=== PATIENT | male | born 1945 | race Caucasian/White ===

== ENCOUNTER 2016-08-02 19:11 | Inpatient (IN) | payer MEDICARE, MEDICAID ==
[~2016-08-02] VITALS: Ht 160 cm; Wt 63.5 kg
--- NOTE | 2016-08-02 20:20 | NUR ---
DIRECT ADMIT FROM [facility] BY [facility] TO ROOM 118 A. ABLE TO AMBULATE TO BED WITH ASSIST OF CANE AND STANDBY ASSIST. HERE TO ARU, TO IMPROVE STRENGTH AND MOBILITY. NO C/O PAIN AT PRESENT.NO RESPIRATORY DISTRESS AT PRESENT. DR OVIEDO PAGED AND NOTIFIED OF ADMISSION. MED ORDERS RECEIVED.DR. ROBLES STATED HE WANTED HOSPITALIST TO WORK ON THE DIABETIC MEDS.DEFERRED TO DR JACKSON. HE STATED HE WILL DO INSULIN ORDERS IN [facility]. NOTIFIED OF ACCUCHECK OF 150 TONIGHT WITHOUT VISUAL SYMPTOMS.ORIENTED TO ROOM, TV, AND CALL LIGHT. PATIENT VERBALIZES UNDERSTANDING.CALL LIGHT WITHIN REACH AAT. INSTRUCTED TO CALL NURSE WHEN HE WANTS TO GET OOB TO TOILET. PT VERBALIZES GOOD UNDERSTANDING.
[2016-08-02] MEDS: MELATONIN 3 MG TABLET PO SCH (21:00)
[2016-08-02] MEDS ORDERED: HYDROCODONE/APAP 5-325MG TABLET PO PRN ×2 (21:00→23:00)
[2016-08-02] MEDS: ENOXAPARIN SODIUM 40 MG/0.4 ML DISP.SYRIN SQ SCH (22:01)
[2016-08-02] MEDS ORDERED: ENOXAPARIN SODIUM 40 MG/0.4 ML DISP.SYRIN SQ ONE (22:06)
[2016-08-02] MEDS: BLOOD SUGAR DIAGNOSTIC 1 EACH STRIP VI SCH (22:29)
[2016-08-02] MEDS ORDERED: MIRALAX 17 GM POWD.PACK PO PRN (22:30)
[2016-08-02] MEDS ORDERED: ACETAMINOPHEN 325 MG TABLET PO PRN ×2 (22:30→23:00)
[2016-08-02] MEDS ORDERED: ALBUTEROL SULFATE 2.5 MG/ 0.5 ML NEBU NEB PRN (22:30)
[2016-08-02] MEDS ORDERED: IPRATROPIUM BROMIDE 0.5 MG/2.5 ML NEBU NEB PRN (22:30)
[2016-08-02] MEDS ORDERED: Z GUARD REMEDY PASTE 57 GM TUBE TOP PRN (23:00)
--- NOTE | 2016-08-02 23:10 | NUR ---
DR JACKSON HOSPITALIST CALLED BACK TO ME AND I NOTIFIED HIM OF ACCUCHECK TONIGHT OF 150, AND THAT PATIENT IS ON GLUCOPHAGE BID. STATED HE WILL MANAGE INSULIN ORDERS IN THE MORNING.
[2016-08-02 23:45] VITALS: BP 146/86
[2016-08-03] MEDS ORDERED: PANTOPRAZOLE SODIUM 40 MG TABLET.DR PO ONE (05:37)
--- NOTE | 2016-08-03 06:00 | NUR ---
SLEPT WELL TONIGHT. NO C/O PAIN OR RESPIRATORY DISTRESS ON ROOM AIR.AMBULATED TO TOILET WITH STEADY GAIT WITH AND WITHOUT CANE AT TIMES. INSTRUCTED TO CALL RN PRIOR TO GOING TO TOILET. PATIENT VERBALIZES UNDERSTANDING. CALL LIGHT WITH REACH
[2016-08-03] MEDS: PANTOPRAZOLE SODIUM 40 MG TABLET.DR PO SCH (06:15)
--- NOTE | 2016-08-03 06:18 | NUR ---
protonix given x1. duplicate order of med, not given
[2016-08-03] MEDS: BLOOD SUGAR DIAGNOSTIC 1 EACH STRIP VI SCH ×4 (06:56→21:05)
[2016-08-03] MEDS ORDERED: PANTOPRAZOLE SODIUM 40 MG TABLET.DR PO SCH (07:00)
[2016-08-03 08:00] VITALS: BP 118/74
[2016-08-03] MEDS: MULTIVIT, IRON, MIN NO. 8, FA TABLET PO SCH (09:00)
[2016-08-03] MEDS: METFORMIN HCL 500 MG TABLET PO SCH ×2 (10:33→18:04)
[2016-08-03] MEDS: LACTOBACILLUS RHAMNOSUS GG 1 EACH CAPSULE PO SCH (10:34)
[2016-08-03] MEDS: GABAPENTIN 300 MG CAPSULE PO SCH ×3 (10:34→17:53)
[2016-08-03] MEDS ORDERED: ACET-2154 PO (13:12)
[2016-08-03] MEDS ORDERED: MULT-1119 PO (13:17)
[2016-08-03] MEDS ORDERED: MELA3TAB PO (13:21)
[2016-08-03] MEDS ORDERED: MELA1TAB10 PO (13:21)
[2016-08-03] MEDS ORDERED: ESOM20CA32 PO (13:28)
[2016-08-03] MEDS ORDERED: BLOO-1152 MC (13:33)
[2016-08-03] MEDS ORDERED: INSU100V11 SUBCUT (13:39)
[2016-08-03] MEDS ORDERED: METF500T PO (13:53)
[2016-08-03] MEDS ORDERED: LACT1CAP89 PO (13:59)
[2016-08-03] MEDS ORDERED: HYDR-3326 PO (14:03)
[2016-08-03] MEDS ORDERED: POLY250017 MC (14:07)
--- NOTE | 2016-08-03 15:34 | NUR ---
Bank Examiner: SW met with patient at bedside to assess needs and provide support. Pt was admitted due to Guillian Hamilton Syndrome, and reported this to be his first day of admission. Pt is pleasant and humorous throughout interview. 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 Pt reported that since then he has felt "sad" and is fearful of falling. Per pt, within the past year he has not felt confident in walking. During interview pt did appear to feel hopeless about his loss in ambulation due to his medical condition. Pt stated "I feel like anything I come across could easily bring me down, and make me fall." Pt also stated "When I stand up I feel stiffness in my legs" and "I'm scared to fall on anything." Pt acknowledged that it has been difficult for him to stay "positive" and feels that he is "unable to do anything" due to his inability to walk at times. 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 Per pt, he now feels as if he can't do anything due to his medical conditions. Per pt, he has a strong support system at home with his and children. Although pt has had a difficult time coping with medical condition, he did report to feel motivated in completing rehab. Per pt, he is "happy" to receive physical therapy and will cooperate with rehabilitation team. SW provided supportive counseling and emotional support to deal with patient's depressive symptoms related to his decline in functioning. SW will continue address issues of loss related to fear of falling. SW will continue to provide support in order for pt to cope with medical conditions. SW will provide pt with outpatient referrals related to diabetic support groups, as well as mental health referrals in order to cope with Guillian Hamilton Syndrome.
[2016-08-03 20:28] VITALS: BP 133/83
[2016-08-03] MEDS: ENOXAPARIN SODIUM 40 MG/0.4 ML DISP.SYRIN SQ SCH (21:00)
[2016-08-03] MEDS: MELATONIN 3 MG TABLET PO SCH (22:29)
[2016-08-04] MEDS: PANTOPRAZOLE SODIUM 40 MG TABLET.DR PO SCH (06:43)
[2016-08-04 08:00] VITALS: BP 131/81
[2016-08-04] MEDS: BLOOD SUGAR DIAGNOSTIC 1 EACH STRIP VI SCH ×4 (08:07→21:00)
[2016-08-04] MEDS: LACTOBACILLUS RHAMNOSUS GG 1 EACH CAPSULE PO SCH (08:17)
[2016-08-04] MEDS: MULTIVIT, IRON, MIN NO. 8, FA TABLET PO SCH (08:17)
[2016-08-04] MEDS: METFORMIN HCL 500 MG TABLET PO SCH ×2 (08:17→17:00)
[2016-08-04] MEDS: GABAPENTIN 300 MG CAPSULE PO SCH ×3 (08:17→16:48)
[2016-08-04 08:21] LABS: BASOPHILS % (AUTO) 0.5 % (0.0-2.0); EOSINOPHILS # (AUTO) 0.4 K/uL (0.0-0.7); EOSINOPHILS % (AUTO) 7.2 % (0.0-7.0); HEMATOCRIT 41.6 % (40-50); HEMOGLOBIN 14.8 G/DL (14.0-18.0); LYMPHOCYTES # (AUTO) 2.2 K/UL (0.8-4.8); LYMPHOCYTES % (AUTO) 36.2 % (20.5-51.5); MEAN CORPUSCULAR HEMOGLOBIN 34.3 UUG (27.0-31.0); MEAN CORPUSCULAR HGB CONC 36 g/dL (32.0-37.0); MEAN CORPUSCULAR VOLUME 96.4 FL (82.0-92.0); MONOCYTES # (AUTO) 0.6 K/UL (0.1-1.30); MONOCYTES % (AUTO) 9.6 % (0.0-11.0); NEUTROPHILS # (AUTO) 2.9 K/UL (1.8-8.9); NEUTROPHILS % (AUTO) 46.5 % (38.5-71.5); PLATELET COUNT (AUTO) 221 K/UL (150-450); RED BLOOD CELL COUNT(AUTO) 4.32 MIL/UL (4.7-6.1); WHITE BLOOD COUNT (AUTO) 6.1 K/UL (4.0-11.2)
[2016-08-04 08:38] LABS: CARBON DIOXIDE 27 mmol/L (21-32); CHLORIDE 107 mmol/L (98-107); CHOLESTEROL 114 mg/dL (<200); CREATININE 0.5 mg/dL (0.6-1.3); GLUCOSE 130 mg/dL (74-106); HDL CHOLESTEROL 23 mg/dL (40-60); MAGNESIUM 1.5 mg/dL (1.8-2.4); TRIGLYCERIDES 279 MG/DL (30-150); UREA NITROGEN, BLOOD 16 mg/dL (7-18)
[2016-08-04 09:20] LABS: THYROID STIMULATING HORMONE 2.809 mIU/mL (0.358-3.740)
[2016-08-04] MEDS ORDERED: MAGNESIUM OXIDE 400 MG TABLET PO ONE (12:30)
[2016-08-04 15:59] VITALS: BP 131/81
[2016-08-04 16:01] VITALS: BP 126/84
--- NOTE | 2016-08-04 16:30 | NUR ---
Spoke with NETO Anderson regarding accucheck order without coverage of insulin. PATROL DEPUTY SHERIFF stated ok to do accucheck without sugar. Oval Or Circular Glass Cutter stated he will talk to GI regarding the possible removal of Gtube
--- NOTE | 2016-08-04 19:45 | NUR ---
Patient received sitting on bed, AOx4. Pt is pleasant upon approach. Denies any pain or any physical discomfort at this time. No acute distress noted. Bed in low and locked position, call light within reach.
[2016-08-04 20:58] VITALS: BP 136/81
[2016-08-04] MEDS: ENOXAPARIN SODIUM 40 MG/0.4 ML DISP.SYRIN SQ SCH (21:00)
[2016-08-04] MEDS: MELATONIN 3 MG TABLET PO SCH (21:48)
--- NOTE | 2016-08-04 22:00 | NUR ---
Patient compliant with po medications. Refused lovenox and accu check at bedtime despite education. No s/s hypo/hyperglycemia noted. Will continue to monitor for safety.
[2016-08-05] MEDS: PANTOPRAZOLE SODIUM 40 MG TABLET.DR PO SCH (06:45)
[2016-08-05] MEDS: BLOOD SUGAR DIAGNOSTIC 1 EACH STRIP VI SCH (06:46)
[2016-08-05 08:35] VITALS: BP 139/83
[2016-08-05] MEDS: METFORMIN HCL 500 MG TABLET PO SCH ×2 (09:02→17:07)
[2016-08-05] MEDS: GABAPENTIN 300 MG CAPSULE PO SCH ×3 (09:02→17:07)
[2016-08-05] MEDS: LACTOBACILLUS RHAMNOSUS GG 1 EACH CAPSULE PO SCH (09:02)
[2016-08-05] MEDS: MULTIVIT, IRON, MIN NO. 8, FA TABLET PO SCH (09:02)
[2016-08-05 18:11] VITALS: BP 124/78
--- NOTE | 2016-08-05 20:30 | NUR ---
CALLED DR PATEL TO CONFIRM EGD WITH PEG REMOVAL FOR CONSENT. PT ACKNOWLEDGED PROCEDURE AND SIGNED CONSENT. INFORMED PT NPO AFTER MIDNIGHT, PT ACKNOWLEDGED.
[2016-08-05 20:38] VITALS: BP 128/82
[2016-08-05] MEDS: ENOXAPARIN SODIUM 40 MG/0.4 ML DISP.SYRIN SQ SCH (20:53)
[2016-08-05] MEDS: MELATONIN 3 MG TABLET PO SCH (20:53)
[2016-08-06] MEDS: PANTOPRAZOLE SODIUM 40 MG TABLET.DR PO SCH (06:41)
--- NOTE | 2016-08-06 07:05 | NUR ---
PT RESTING IN BED. NO DISTRESS NOTED. NPO STATUS MAINTAINED SINCE MIDNIGHT. SAFETY MAINTAINED. CALL LIGHT WITHIN REACH.
[2016-08-06] MEDS: METFORMIN HCL 500 MG TABLET PO SCH ×2 (08:00→18:00)
[2016-08-06] MEDS: GABAPENTIN 300 MG CAPSULE PO SCH ×3 (09:00→17:00)
[2016-08-06] MEDS: MULTIVIT, IRON, MIN NO. 8, FA TABLET PO SCH (09:00)
[2016-08-06] MEDS: LACTOBACILLUS RHAMNOSUS GG 1 EACH CAPSULE PO SCH (09:00)
--- NOTE | 2016-08-06 09:45 | NUR ---
RECEIVED PATIENT AT THERAPY. TOLERATED THERAPY WELL. REMINDED PATIENT TO MAINTAIN NPO STATUS. ORAL CARE DONE. ENCOURAGED TO VOID. MADE SURE CONSENT WAS AVAILABLE FOR EGD AT 10:00, CONSENT SIGNED BY PATIENT.
[2016-08-06] MEDS ORDERED: IV LACTATED RINGERS SOLUTION 1,000 ML BAG MC ONE (10:48)
[2016-08-06] MEDS ORDERED: LIDOCAINE HCL 1% 20 ML VIAL MC ONE (10:48)
[2016-08-06] MEDS ORDERED: PROPOFOL 200 MG/20 ML BOTTLE IV ONE (10:48)
[2016-08-06] MEDS ORDERED: IV D5/ 0.9% NACL 1,000 ML IV SCH (11:30)
--- NOTE | 2016-08-06 12:10 | NUR ---
PATIENT BACK TO ROOM IN STABLE CONDITION,AWAKE, ALERT AND ORIENTED. NO COMPLAINTS OF PAIN OR DISCOMFORT. INSTRUCTED PATIENT TO MAINTAIN NPO STATUS UNTIL 22:00 TODAY. IV FLUID OF D5NS 75CC./HR. STARTED. IV SITE OVER LEFT WRIST. IV PATENT AND INFUSING WELL.
[2016-08-06 20:00] VITALS: BP 139/84
[2016-08-06] MEDS: ENOXAPARIN SODIUM 40 MG/0.4 ML DISP.SYRIN SQ SCH (21:00)
[2016-08-06] MEDS: MELATONIN 3 MG TABLET PO SCH (21:00)
--- NOTE | 2016-08-06 22:15 | NUR ---
Received patient resting in bed with no s/s of distress. Respirations even and unlabored. No pain at this time. NPO until 10PM. Call light within reach. Will continue to monitor.
[2016-08-07] MEDS: MELATONIN 3 MG TABLET PO SCH ×2 (00:25→22:16)
--- NOTE | 2016-08-07 00:26 | NUR ---
Patient refused Lovenox, stated he does not want to be on said medication anymore and that this request was already made known to staff previously.
[2016-08-07] MEDS: PANTOPRAZOLE SODIUM 40 MG TABLET.DR PO SCH (06:03)
--- NOTE | 2016-08-07 06:34 | NUR ---
Patient resting on bed, no distress noted. No complaints of pain during shift. Respirations even and unlabored. Dinner served per patient's request around 2300. Supervised during ambulation to the bathroom. IV line taken off per patient's request, verbalized discomfort. Stated it bothered him everytime something touches it. Due meds given. Needs attended. Kept comfortable. Frequent checks done. Endorsed accordingly.
[2016-08-07 08:00] VITALS: BP 125/65
--- NOTE | 2016-08-07 08:00 | NUR ---
RECEIVED PATIENT AWAKE IN BED. AWAKE, ALERT AND ORIENTED. NO COMPLAINTS OF DISCOMFORT. NO IV LINE PRESENT. COMPLETED IV INFUSION. CALL LIGHT WITHIN REACH. ENSURED SAFETY
[2016-08-07] MEDS: GABAPENTIN 300 MG CAPSULE PO SCH ×3 (08:22→17:20)
[2016-08-07] MEDS: LACTOBACILLUS RHAMNOSUS GG 1 EACH CAPSULE PO SCH (08:22)
[2016-08-07] MEDS: MULTIVIT, IRON, MIN NO. 8, FA TABLET PO SCH (08:22)
[2016-08-07] MEDS: METFORMIN HCL 500 MG TABLET PO SCH ×2 (08:23→17:20)
--- NOTE | 2016-08-07 15:31 | NUR ---
PATIENT FOUND ON [address] SITTING DOWN WITH MERRY/RN AND YENNIFER/ALLYSON. PATIENT TRIPPED AND FELL HITTING BILATERAL KNEES AND RIGHT ARM ON THE GROUND. NO VISIBLE BRUISE OR OPEN WOUNDS ON KNEES AND ELBOW. PATIENT IS ALERT, AWAKE AND ORIENTED. NO COMPLAINTS OF DISCOMFORT. NO S/S OF DISTRESS. VITAL SIGNS TAKEN, VITAL SIGNS WNL. INFORMED DR. ROBLES OF INCIDENT, NO NEW ORDERS AT THIS TIME. INFORMED PHYSICAL THERAPY OF INCIDENT. INFORMED MARY ELLEN, DIRECTOR OF RETAIL MARKETING AND CHARLIE, DIRECTOR. INFORMED PEGGY GARCIA, DAUGHTER OF INCIDENT. INCIDENT COMPLETED AND SUBMITTED
--- NOTE | 2016-08-07 19:16 | NUR ---
Pt in bed, a/o x4, call light within reach. no distress noted.
[2016-08-07] MEDS: ENOXAPARIN SODIUM 40 MG/0.4 ML DISP.SYRIN SQ SCH (21:00)
[2016-08-07 21:39] VITALS: BP 126/77
--- NOTE | 2016-08-07 23:35 | NUR ---
Received patient resting in bed with no s/s of distress. No complaints of pain at this time. In a pleasant disposition. Verbalized absence of pain, stated "feeling good" despite fall incident earlier in the day. Call light within reach. Will continue to monitor.
[2016-08-08] MEDS: PANTOPRAZOLE SODIUM 40 MG TABLET.DR PO SCH (06:27)
--- NOTE | 2016-08-08 06:57 | NUR ---
Patient went back to sleep after taking AM meds. Verbalized thankfulness for nurses' being caring. Pleasant disposition throughout shift. Frequent checks done. No s/s of distress. No complaints of pain. Due meds given. Needs attended. Call light kept within reach. Endorsed accordingly.
[2016-08-08 08:00] VITALS: BP 121/76
[2016-08-08] MEDS: METFORMIN HCL 500 MG TABLET PO SCH ×2 (09:19→17:24)
[2016-08-08] MEDS: MULTIVIT, IRON, MIN NO. 8, FA TABLET PO SCH (09:19)
[2016-08-08] MEDS: LACTOBACILLUS RHAMNOSUS GG 1 EACH CAPSULE PO SCH (09:19)
[2016-08-08] MEDS: GABAPENTIN 300 MG CAPSULE PO SCH ×3 (09:19→17:24)
--- NOTE | 2016-08-08 19:30 | NUR ---
RECEIVED PATIENT AWAKE, ALERT AND ORIENTED X4 WITHOUT C/O PAIN, NUMBNESS, TINGLING OR DIFFICULTY BREATHING.DR ROBLES HERE TO EVALUATE PATIENT WITH ORDERS RECEIVED. 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 OBLIGED REQUEST.LEFT MID ABDOMINAL QUADRANT SURGICAL DRESSING S/P G TUBE REMOVAL WAS CHANGED. CLEANED SITE WITH NORMAL SALINE, COVERED WITH STERILE DRESSING AND PAPER TAPE.THERE ARE NO SIGNS OF INFECTION AT SITE AT THIS TIME.NO DRAINAGE FROM SITE, NO REDNESS AT SITE. SITE IS NEARLY COMPLETELY CLOSED. PATIENT HAS NO C/O PAIN AT THE SITE. SAFETY AND COMFORT CONCERNS MAINTAINED. CALL LIGHT WITHIN REACH AAT.
[2016-08-08 22:19] VITALS: BP 135/79
[2016-08-08] MEDS: MELATONIN 3 MG TABLET PO SCH (22:31)
--- NOTE | 2016-08-09 06:00 | NUR ---
SLEPT WELL AFTER TAKING HIS MELATONIN LAST NIGHT.FREE FROM INJURY THIS SHIFT. NO C/O WEAKNESS WHILE WALKING TO THE BATHROOM WITH HIS CANE.NO C/O PAIN THIS MORNING. APPEARS COMFORTABLE IN NAD. CALL LIGHT WITHIN REACH AAT
[2016-08-09] MEDS: PANTOPRAZOLE SODIUM 40 MG TABLET.DR PO SCH (06:07)
[2016-08-09 08:12] LABS: BASOPHILS % (AUTO) 0.5 % (0.0-2.0); EOSINOPHILS # (AUTO) 0.5 K/uL (0.0-0.7); EOSINOPHILS % (AUTO) 6.5 % (0.0-7.0); LYMPHOCYTES # (AUTO) 2.7 K/UL (0.8-4.8); LYMPHOCYTES % (AUTO) 36.4 % (20.5-51.5); MEAN CORPUSCULAR HEMOGLOBIN 34.4 UUG (27.0-31.0); MEAN CORPUSCULAR HGB CONC 36 g/dL (32.0-37.0); MEAN CORPUSCULAR VOLUME 96.8 FL (82.0-92.0); MONOCYTES # (AUTO) 0.6 K/UL (0.1-1.30); MONOCYTES % (AUTO) 7.8 % (0.0-11.0); NEUTROPHILS # (AUTO) 3.6 K/UL (1.8-8.9); NEUTROPHILS % (AUTO) 48.8 % (38.5-71.5); PLATELET COUNT (AUTO) 237 K/UL (150-450); RED BLOOD CELL COUNT(AUTO) 4.64 MIL/UL (4.7-6.1); WHITE BLOOD COUNT (AUTO) 7.4 K/UL (4.0-11.2)
[2016-08-09 08:34] VITALS: BP 128/71
[2016-08-09] MEDS: MULTIVIT, IRON, MIN NO. 8, FA TABLET PO SCH (09:04)
[2016-08-09] MEDS: GABAPENTIN 300 MG CAPSULE PO SCH ×3 (09:04→17:37)
[2016-08-09] MEDS: LACTOBACILLUS RHAMNOSUS GG 1 EACH CAPSULE PO SCH (09:04)
[2016-08-09] MEDS: METFORMIN HCL 500 MG TABLET PO SCH ×2 (09:04→17:37)
[2016-08-09 09:39] LABS: ALANINE AMINOTRANSFERASE 62 U/L (16-63); ALKALINE PHOSPHATASE 51 U/L (50-136); ASPARTATE AMINOTRANSFERASE 37 U/L (15-37); BILIRUBIN,TOTAL 0.7 mg/dL (0.2-1.0); CARBON DIOXIDE 29 mmol/L (21-32); CHLORIDE 107 mmol/L (98-107); CREATININE 0.5 mg/dL (0.6-1.3); GLUCOSE 131 mg/dL (74-106); MAGNESIUM 1.7 mg/dL (1.8-2.4); PHOSPHOROUS 3.3 mg/dL (2.5-4.9); POTASSIUM 4.6 mmol/L (3.5-5.1); TOTAL PROTEIN, SERUM 7.7 g/dL (6.4-8.2); UREA NITROGEN, BLOOD 17 mg/dL (7-18)
[2016-08-09] MEDS ORDERED: MAGNESIUM OXIDE 400 MG TABLET PO ONE (10:30)
--- NOTE | 2016-08-09 14:39 | NUR ---
pt diet switched to regular diet. Addendum: 08/09/16 at 1440 by STEPHANI LAM RN as prescribed verbally by Alda
--- NOTE | 2016-08-09 17:02 | NUR ---
IDT MEETING 08/09/16
[2016-08-09] MEDS: MELATONIN 3 MG TABLET PO SCH (21:21)
[2016-08-09 22:17] VITALS: BP 139/85
--- NOTE | 2016-08-10 06:28 | NUR ---
Patient alert and oriented and verbally able to let needs known. Slept well throughout the night. Had no complains of pain or discomfort, no signs of respiratory distress. Patient has call light within reach, all needs attended to.
--- NOTE | 2016-08-10 08:00 | NUR ---
RECEIVED PATIENT AWAKE SITTING IN BED. NO S/S OF DISTRESS NO COMPLAINTS OF PAIN OR DISCOMFORT. CALL LIGHT WITHIN REACH. WILL CONTINUE TO MONITOR,
[2016-08-10] MEDS: PANTOPRAZOLE SODIUM 40 MG TABLET.DR PO SCH (08:01)
[2016-08-10] MEDS: METFORMIN HCL 500 MG TABLET PO SCH ×2 (08:01→17:55)
[2016-08-10] MEDS: MULTIVIT, IRON, MIN NO. 8, FA TABLET PO SCH (08:03)
[2016-08-10] MEDS: LACTOBACILLUS RHAMNOSUS GG 1 EACH CAPSULE PO SCH (08:03)
[2016-08-10] MEDS: GABAPENTIN 300 MG CAPSULE PO SCH ×3 (08:03→17:55)
[2016-08-10 08:27] VITALS: BP 120/72
--- NOTE | 2016-08-10 14:00 | NUR ---
TOLERATED THERAPY WELL. ATTENDED TO NEEDS PROMPTLY. PATIENT SITTING AT BED WITH LAP TOP.
--- NOTE | 2016-08-10 18:13 | NUR ---
PEG REMOVAL INCISION DRESSING CHANGED. DRY WOUND, HEALING WELL.
[2016-08-10] MEDS: MELATONIN 3 MG TABLET PO SCH (20:42)
[2016-08-10 21:46] VITALS: BP 135/83
[2016-08-11] MEDS: PANTOPRAZOLE SODIUM 40 MG TABLET.DR PO SCH (06:23)
--- NOTE | 2016-08-11 06:25 | NUR ---
Patient alert and oriented and verbally able to let needs known. Slept well throughout the night. Had no complains of pain or discomfort. No signs of respiratory distress, patient does have call light within reach, all needs attended to.
[2016-08-11] MEDS: MULTIVIT, IRON, MIN NO. 8, FA TABLET PO SCH (09:13)
[2016-08-11] MEDS: METFORMIN HCL 500 MG TABLET PO SCH ×2 (09:13→17:37)
[2016-08-11] MEDS: LACTOBACILLUS RHAMNOSUS GG 1 EACH CAPSULE PO SCH (09:13)
[2016-08-11] MEDS: GABAPENTIN 300 MG CAPSULE PO SCH ×3 (09:13→17:36)
--- NOTE | 2016-08-11 19:30 | NUR ---
Patient resting in bed, no s/s of distress. Verbalized having no pain. Pleasant disposition as usual. Call light within reach. Will continue to monitor.
[2016-08-11] MEDS: MELATONIN 3 MG TABLET PO SCH (20:28)
[2016-08-11 21:45] VITALS: BP 131/77
[2016-08-12] MEDS: PANTOPRAZOLE SODIUM 40 MG TABLET.DR PO SCH (06:26)
--- NOTE | 2016-08-12 07:10 | NUR ---
Patient went back to sleep after taking AM meds. Verbalized appreciation for care received. Pleasant disposition throughout shift. Slept well throughout the shift. Frequent checks done. No s/s of distress. Verbalized absence of pain. Due meds given. Needs attended. Call light kept within reach. Endorsed accordingly
[2016-08-12 08:00] VITALS: BP 144/86
--- NOTE | 2016-08-12 08:00 | NUR ---
Patient was received awake in bed. Alert and oriented x3. He is on room air. Denies any pain. Patient states " I am waiting on breakfast so I can eat before my physical therapy because yesterday the tray and PT arrived at the same time". Call light is within the patient's reach , will continue to monitor this patient and address any needs he may have today.
[2016-08-12] MEDS: LACTOBACILLUS RHAMNOSUS GG 1 EACH CAPSULE PO SCH (08:19)
[2016-08-12] MEDS: METFORMIN HCL 500 MG TABLET PO SCH ×2 (08:19→17:38)
[2016-08-12] MEDS: MULTIVIT, IRON, MIN NO. 8, FA TABLET PO SCH (08:19)
[2016-08-12] MEDS: GABAPENTIN 300 MG CAPSULE PO SCH ×3 (08:19→17:38)
--- NOTE | 2016-08-12 18:51 | NUR ---
Patient came to nursing station and stated" you want to know a problem I just started having about 30min ago". When asked what problem was patient showed me his hands and they were shaking . Patient stated he takes pills for his hand but do not know what the pills are. Calling to make doctor aware of patient problem at this time.
--- NOTE | 2016-08-12 19:06 | NUR ---
Blood Pressure is 127/72, Hr 83 and blood sugar is 172 will make doctor aware when he returns the phone call.
[2016-08-12] MEDS: MELATONIN 3 MG TABLET PO SCH (21:31)
--- NOTE | 2016-08-13 06:59 | NUR ---
Patient alert and oriented and verbally able to let needs known. Slept well throughout the night. Showed no signs of pain or discomfort, no signs of respiratory distress. Call light within reach, all needs attended to.
--- NOTE | 2016-08-13 07:50 | NUR ---
RECEIVED PATIENT AWAKE IN BED. ALERT AND ORIENTED. NO S/S OF DISTRESS. NO COMPLAINTS OF PAIN/ DISCOMFORT. CALL LIGHT WITHIN REACH. ENCOURAGED PATIENT TO VERBALIZE NEEDS AND CALL FOR ASSISTANCE.
[2016-08-13] MEDS: METFORMIN HCL 500 MG TABLET PO SCH ×2 (07:52→17:12)
[2016-08-13] MEDS: PANTOPRAZOLE SODIUM 40 MG TABLET.DR PO SCH (07:52)
[2016-08-13] MEDS: LACTOBACILLUS RHAMNOSUS GG 1 EACH CAPSULE PO SCH (08:01)
[2016-08-13] MEDS: MULTIVIT, IRON, MIN NO. 8, FA TABLET PO SCH (08:01)
[2016-08-13] MEDS: GABAPENTIN 300 MG CAPSULE PO SCH ×3 (08:01→17:12)
[2016-08-13 08:13] LABS: BASOPHILS % (AUTO) 0.4 % (0.0-2.0); EOSINOPHILS # (AUTO) 0.4 K/uL (0.0-0.7); EOSINOPHILS % (AUTO) 5.7 % (0.0-7.0); HEMOGLOBIN 14.9 G/DL (14.0-18.0); LYMPHOCYTES # (AUTO) 2.4 K/UL (0.8-4.8); MEAN CORPUSCULAR HEMOGLOBIN 33.5 UUG (27.0-31.0); MEAN CORPUSCULAR HGB CONC 35 g/dL (32.0-37.0); MEAN CORPUSCULAR VOLUME 96.6 FL (82.0-92.0); MONOCYTES # (AUTO) 0.6 K/UL (0.1-1.30); MONOCYTES % (AUTO) 9.4 % (0.0-11.0); NEUTROPHILS # (AUTO) 3.2 K/UL (1.8-8.9); NEUTROPHILS % (AUTO) 48.5 % (38.5-71.5); PLATELET COUNT (AUTO) 236 K/UL (150-450); RED BLOOD CELL COUNT(AUTO) 4.45 MIL/UL (4.7-6.1); WHITE BLOOD COUNT (AUTO) 6.6 K/UL (4.0-11.2)
[2016-08-13 08:25] LABS: ALANINE AMINOTRANSFERASE 63 U/L (16-63); ALKALINE PHOSPHATASE 48 U/L (50-136); ASPARTATE AMINOTRANSFERASE 30 U/L (15-37); BILIRUBIN,TOTAL 0.5 mg/dL (0.2-1.0); CARBON DIOXIDE 28 mmol/L (21-32); CHLORIDE 105 mmol/L (98-107); CREATININE 0.6 mg/dL (0.6-1.3); GLUCOSE 125 mg/dL (74-106); MAGNESIUM 1.6 mg/dL (1.8-2.4); POTASSIUM 3.9 mmol/L (3.5-5.1); UREA NITROGEN, BLOOD 17 mg/dL (7-18)
[2016-08-13 08:31] VITALS: BP 129/79
--- NOTE | 2016-08-13 16:00 | NUR ---
PATIENT HAD SHOWER, SHOWERED INDEPENDENTLY WITH SUPERVISION. TOLERATED THERAPY WELL. NO COMPLAINTS OF PAIN OR DISCOMFORT. CLEANED AND CHANGED DRESSING OVER PREVIOUS SURGICAL SITE.
[2016-08-13] MEDS: MELATONIN 3 MG TABLET PO SCH (20:54)
[2016-08-13] MEDS ORDERED: MAGNESIUM OXIDE 400 MG TABLET PO SCH (21:00)
[2016-08-13 21:59] VITALS: BP 111/75
[2016-08-14] MEDS: PANTOPRAZOLE SODIUM 40 MG TABLET.DR PO SCH (07:02)
--- NOTE | 2016-08-14 07:08 | NUR ---
Patient slept well throughout the night, showed no signs of pain or discomfort. Showed no signs of respiratory distress. Has call light within reach all needs attended to.
[2016-08-14 08:26] VITALS: BP 127/74
[2016-08-14] MEDS: LACTOBACILLUS RHAMNOSUS GG 1 EACH CAPSULE PO SCH (08:27)
[2016-08-14] MEDS: GABAPENTIN 300 MG CAPSULE PO SCH ×3 (08:27→17:32)
[2016-08-14] MEDS: MULTIVIT, IRON, MIN NO. 8, FA TABLET PO SCH (08:27)
[2016-08-14] MEDS: METFORMIN HCL 500 MG TABLET PO SCH ×2 (08:27→17:32)
--- NOTE | 2016-08-14 12:15 | NUR ---
Patient received from Figueroa RN, resting comfortably in bed. No signs of acute distress noted. Currently working on discharge process. Awaiting patient's daughter to call back regarding potato picker for patient, if possible. Case management made aware, [id number] facility made aware. No other verbalized needs at this time. Safety precautions maintained, call light within reach.
--- NOTE | 2016-08-14 16:47 | NUR ---
Discussed with patient discharge disposition and transport. Contacted patient's son at [phone], verbalized he would drive by in a private car to orange picker patient around 1800. Patient verbalized understanding as well. dairy processing supervisor and case management made aware. Discharge paperwork completed and discussed with patient. No other verbalized needs or concerns at this time.
== END 2016-08-14 18:05 | disposition home health service (06) | DRG 74 ==
PROVIDERS: ADMIT Physical Medicine & Rehabilitation Pain Medicine; ATTEND Physical Medicine & Rehabilitation Pain Medicine
DX: G65.0 Sequelae of Guillain-Barre syndrome (principal); R26.81 Unsteadiness on feet; Z87.891 Personal history of nicotine dependence; R53.1 Weakness; G89.4 Chronic pain syndrome; G62.9 Polyneuropathy, unspecified; K27.9 Peptic ulcer, site unspecified, unspecified as acute or chronic, without hemorrhage or perforation; R13.10 Dysphagia, unspecified; Z90.49 Acquired absence of other specified parts of digestive tract; E11.9 Type 2 diabetes mellitus without complications; G47.00 Insomnia, unspecified; I10 Essential (primary) hypertension; Z93.1 Gastrostomy status; R20.0 Anesthesia of skin; R29.6 Repeated falls; E83.42 Hypomagnesemia; M62.81 Muscle weakness (generalized); R25.1 Tremor, unspecified; Z87.11 Personal history of peptic ulcer disease; K29.70 Gastritis, unspecified, without bleeding
CPT/HCPCS: 36415; 49440; 70030-TC; 83735; 84100; 84443; 85025; 97110; 97112; 97116; 97161; 97530; 97535; A4217; A4663; J1650; J3490; J7030; J7070; J7120

== ENCOUNTER 2016-08-06 09:30 | Day surgery (SDC) | payer MEDICARE, MEDICAID ==
[~2016-08-06 09:30] MED LIST: ACET-2154 PO; BLOO-1152 MC; ESOM20CA32 PO; HYDR-3326 PO; INSU100V11 SUBCUT; LACT1CAP89 PO; MELA3TAB PO; METF500T PO; MULT-1119 PO; POLY250017 MC
== END 2016-08-06 11:40 | disposition still patient (30) ==
LOC: DS 09:30
PROVIDERS: ATTEND Internal Medicine Gastroenterology
DX: G61.0 Guillain-Barre syndrome (principal); K29.70 Gastritis, unspecified, without bleeding; I10 Essential (primary) hypertension; E11.40 Type 2 diabetes mellitus with diabetic neuropathy, unspecified; Z90.49 Acquired absence of other specified parts of digestive tract
CPT/HCPCS: 49440; 70030-TC; 97110; 97116; 97530; 97535; A4217; J3490; J7120